=== PATIENT | female | born 1990 | race African-American/Black ===

== ENCOUNTER 2016-12-25 14:31 | Emergency (ER) | payer MEDICAID ==
[~2016-12-25] VITALS: Ht 152.4 cm; Wt 65.4 kg
[~2016-12-25 14:31] MED LIST: ACET-6134 PO; IBUP-2213 PO
[2016-12-25 14:33] VITALS: BP 115/80
--- NOTE | 2016-12-25 15:35 | NUR ---
Patient returned from XRAY, transferred to [facility] to be evaluated as fast track by Dr. Kumar.
--- NOTE | 2016-12-25 15:38 | NUR ---
PATIENT PRESENTS TO ED WITH C/O RIGHT 5TH TOE PAIN . PT STATES SHE BUMPED HER RIGHT FOOT ON THE EDGE OF HER COUCH LAST NOC AND FELT IMMEDIATE PAIN TO HER RIGHT 5TH TOE . DENIES N/V/D; ECCHYMOSIS NOTED TO RIGHT 5TH TOE, SKIN IS OTHERWISE WARM/DRY; AAOX4 WITH EVEN AND STEADY GAIT; LUNGS CLEAR BL; HR EVEN AND REGULAR; PT DENIES ANY FEVER, CP, SOB, OR COUGH AT THIS TIME; PATIENT STATES PAIN OF 8/10 AT THIS TIME; VSS; PATIENT POSITIONED IN OVERFLOW. ER MD MADE AWARE OF PT STATUS.
[2016-12-25 16:26] VITALS: BP 121/78
== END 2016-12-25 16:26 | disposition home or self-care (01) ==
LOC: MED 14:31
DX: S93.504A Unspecified sprain of right lesser toe(s), initial encounter (principal); W22.03XA Walked into furniture, initial encounter; Y93.89 Activity, other specified; Y92.89 Other specified places as the place of occurrence of the external cause; Y99.8 Other external cause status
CPT/HCPCS: 73630; 81025; 99284